=== PATIENT | female | born 1995 | race Caucasian/White ===

== ENCOUNTER 2017-04-15 21:21 | Emergency (ER) | payer OTHER ==
[2017-04-15 21:32] VITALS: BP 124/77
[2017-04-15] MEDS ORDERED: Sodium Chloride 0.9% 1,000 ML IV ONE (21:50)
[2017-04-15] MEDS ORDERED: Sodium Chloride 0.9% 10 ML Syringe FLUSH PRN (21:51)
[2017-04-15] MEDS ORDERED: Ketorolac 15 MG/ML SDV IVPUSH ONE (21:51)
[2017-04-15] MEDS ORDERED: LORazepam 2 MG/ML MDV IVPUSH ONE (21:52)
[2017-04-15] MEDS ORDERED: Magnesium Sulfate/Water 2 GM in Premix Bag 1 BAG IV ONE (22:29)
[2017-04-15] MEDS ORDERED: HYDROmorphone 0.5 MG/0.5 ML Syringe IVPUSH ONE (22:33)
--- NOTE | 2017-04-15 22:45 | EDM.PDOC ---
ED HPI GENERAL MEDICAL PROBLEM - General Chief Complaint: Gastrointestinal Problem Stated Complaint: THROWING UP SINCE NOON/STOMACH PAIN Time Seen by Provider: 04/15/17 21:35 Source of Information: Reports: Patient History Limitations: Reports: No Limitations - History of Present Illness INITIAL COMMENTS - FREE TEXT/NARRATIVE: 21-year-old female presents for evaluation of abdominal pain, nausea, vomiting and diarrhea. She felt nauseous last night went to bed. She states that she awoke fine. Reports around noon she started having episodes of nausea, vomiting and diarrhea. Reports 2 episodes of diarrhea today but then subsided. She reports that she has been having significant vomiting and will vomit anything up. She cannot keep anything down. She reports pain across the top of her abdomen. She states that the pain is greatest in the right and left upper quadrants and epigastric area. She states that the pain radiates from the epigastric area around her left upper quadrant and toward her back. She describes this pain as a severe, sharp, stabbing pain. She has not taking any medications for this prior to arrival in the ER. Patient denies any fevers. She reports that she has been feeling chilled and diaphoretic. Reports several weeks ago that she had black stools but states this is his not been normal for her. She did notice some pinkness to her stools today. She also reported some pink changed emesis. Patient also complains of numbness and tingling. Reports numbness and tingling to her face, hands and legs. She also reports muscle spasm straight hands. Patient denies any surgeries her abdomen. She denies any recent travel. She denies any ill contrast. She denies any questionable foods. Onset: Today Location: Reports: Abdomen Context: Denies: Sick Contact Abdomen Pain Score (Numeric/FACES): 9 - Related Data Allergies Allergy/AdvReac Type Severity Reaction Status Date / Time No Known Allergies Allergy Verified 04/15/17 21:39 Home Meds: Home Meds valACYclovir HCl [Valtrex] 500 mg PO ASDIRECTED 04/15/17 [History] Past Medical History - Past Health History Medical/Surgical History: Denies Medical/Surgical History ED ROS GENERAL - Review of Systems Review Of Systems: See Below Constitutional: Denies: Fever GI/Abdominal: Reports: Abdominal Pain, Diarrhea (x2 episodes today), Nausea, Vomiting, Other (reports black stool last week now reports sink tinged stool) Neurological: Reports: Numbness (face, hands and legs), Tingling (face, hands and legs) ED EXAM, GI/ABD - Physical Exam Exam: See Below Exam Limited By: No Limitations General Appearance: Alert, WD/WN, No Apparent Distress Throat/Mouth: Normal Inspection, Normal Voice, No Airway Compromise Respiratory/Chest: No Respiratory Distress, Lungs Clear Cardiovascular: Normal Peripheral Pulses, Regular Rate, Rhythm, No Murmur GI/Abdominal: Normal Bowel Sounds, Soft, Tenderness (RUQ, LUQ and epigastric area). No: Rebound, McBurney's Sign, Ag's Sign Neurological: Alert, Oriented, Normal Cognition Psychiatric: Normal Affect, Normal Mood Skin Exam: Warm, Dry, Normal Color Course - Vital Signs Last Recorded V/S: Last Vital Signs Temp 37.3 C 04/15/17 21:30 Pulse 99 04/15/17 21:30 Resp 20 04/15/17 21:30 BP 124/77 04/15/17 21:30 Pulse Ox 100 04/15/17 21:30 - Orders/Labs/Meds Labs: Laboratory Tests 04/15/17 04/15/17 04/15/17 Range/Units 21:45 21:45 21:45 WBC 8.56 (3.98-10.04) K/mm3 RBC 5.10 (3.98-5.22) M/mm3 Hgb 15.3 (11.2-15.7) gm/L Hct 44.5 (34.1-44.9) % MCV 87.3 (79.4-94.8) fl MCH 30.0 (25.6-32.2) pg MCHC 34.4 (32.2-35.5) g/dl RDW Std Deviation 39.0 (36.4-46.3) fL Plt Count 247 (182-369) K/mm3 MPV 10.3 (9.4-12.3) fl Neutrophils % (Manual) 77 H (40-60) % Band Neutrophils % 3 (0-10) % Lymphocytes % (Manual) 17 L (20-40) % Atypical Lymphs % 0 % Monocytes % (Manual) 3 (2-10) % Eosinophils % (Manual) 0 L (0.7-5.8) % Basophils % (Manual) 0 L (0.1-1.2) Platelet Estimate Adequate RBC Morph Comment Normal Sodium 140 (136-145) mEq/L Potassium 3.9 (3.5-5.1) mEq/L Chloride 103 (98-107) mEq/L Carbon Dioxide 22 (21-32) mEq/L Anion Gap 18.9 H (5-15) BUN 16 (7-18) mg/dL Creatinine 0.8 (0.55-1.02) mg/dL Est Cr Clr Drug Dosing 87.24 mL/min Estimated GFR (MDRD) > 60 (>60) mL/min BUN/Creatinine Ratio 20.0 H (14-18) Glucose 98 (74-106) mg/dL Calcium 9.6 (8.5-10.1) mg/dL Magnesium (1.8-2.4) mg/dl Total Bilirubin 1.7 H (0.2-1.0) mg/dL GGT 11 (5-55) U/L AST 21 (15-37) U/L ALT 21 (14-59) U/L Alkaline Phosphatase 90 (46-116) U/L C-Reactive Protein 1.0 (<1.0) mg/dL Total Protein 8.3 H (6.4-8.2) g/dl Albumin 4.3 (3.4-5.0) g/dl Globulin 4.0 gm/dL Albumin/Globulin Ratio 1.1 (1-2) Lipase 126 (73-393) U/L TSH 3rd Generation (0.358-3.74) uIU/mL HCG, Qual Negative (NEGATIVE) Urine Color (Yellow) Urine Appearance (Clear) Urine pH (5.0-8.0) Ur Specific [place] (1.005-1.030) Urine Protein (Negative) Urine Glucose (UA) (Negative) Urine Ketones (Negative) Urine Occult Blood (Negative) Urine Nitrite (Negative) Urine Bilirubin (Negative) Urine Urobilinogen (0.2-1.0) Ur Leukocyte Esterase (Negative) Urine RBC (0-5) /hpf Urine WBC (0-5) /hpf Ur Epithelial Cells Ur Squamous Epith Cells (0-5) /hpf Urine Bacteria (FEW) /hpf Urine Mucus (FEW) /hpf 04/15/17 04/15/17 04/15/17 Range/Units 21:45 21:45 22:35 WBC (3.98-10.04) K/mm3 RBC (3.98-5.22) M/mm3 Hgb (11.2-15.7) gm/L Hct (34.1-44.9) % MCV (79.4-94.8) fl MCH (25.6-32.2) pg MCHC (32.2-35.5) g/dl RDW Std Deviation (36.4-46.3) fL Plt Count (182-369) K/mm3 MPV (9.4-12.3) fl Neutrophils % (Manual) (40-60) % Band Neutrophils % (0-10) % Lymphocytes % (Manual) (20-40) % Atypical Lymphs % % Monocytes % (Manual) (2-10) % Eosinophils % (Manual) (0.7-5.8) % Basophils % (Manual) (0.1-1.2) Platelet Estimate RBC Morph Comment Sodium (136-145) mEq/L Potassium (3.5-5.1) mEq/L Chloride (98-107) mEq/L Carbon Dioxide (21-32) mEq/L Anion Gap (5-15) BUN (7-18) mg/dL Creatinine (0.55-1.02) mg/dL Est Cr Clr Drug Dosing mL/min Estimated GFR (MDRD) (>60) mL/min BUN/Creatinine Ratio (14-18) Glucose (74-106) mg/dL Calcium (8.5-10.1) mg/dL Magnesium 1.7 L (1.8-2.4) mg/dl Total Bilirubin (0.2-1.0) mg/dL GGT (5-55) U/L AST (15-37) U/L ALT (14-59) U/L Alkaline Phosphatase (46-116) U/L C-Reactive Protein (<1.0) mg/dL Total Protein (6.4-8.2) g/dl Albumin (3.4-5.0) g/dl Globulin gm/dL Albumin/Globulin Ratio (1-2) Lipase (73-393) U/L TSH 3rd Generation 0.434 (0.358-3.74) uIU/mL HCG, Qual (NEGATIVE) Urine Color Yellow (Yellow) Urine Appearance Clear (Clear) Urine pH 7.5 (5.0-8.0) Ur Specific [place] 1.020 (1.005-1.030) Urine Protein 1+ H (Negative) Urine Glucose (UA) Negative (Negative) Urine Ketones 3+ H (Negative) Urine Occult Blood Trace-lysed H (Negative) Urine Nitrite Negative (Negative) Urine Bilirubin Negative (Negative) Urine Urobilinogen 0.2 (0.2-1.0) Ur Leukocyte Esterase Negative (Negative) Urine RBC 0-5 (0-5) /hpf Urine WBC 0-5 (0-5) /hpf Ur Epithelial Cells Not Reportable Ur Squamous Epith Cells 5-10 H (0-5) /hpf Urine Bacteria Few (FEW) /hpf Urine Mucus Few (FEW) /hpf Meds: Medications Discontinued Medications Generic Name Dose Route Start Last Admin Trade Name Freq PRN Reason Stop Dose Admin Al Hydroxide/Mg Hydroxide 30 0 ml 04/15/17 22:54 04/15/17 23:23 ml/ Lidocaine HCl 15 ml PO 04/15/17 22:55 15 ml ONETIME ONE Administration Hydromorphone HCl 0.5 mg 04/15/17 22:33 04/15/17 22:47 Dilaudid IVPUSH 04/15/17 22:34 0.5 mg ONETIME ONE Administration Sodium Chloride 1,000 mls @ 999 mls/hr 04/15/17 21:50 04/15/17 22:00 Normal Saline IV 04/15/17 22:50 999 mls/hr ONETIME ONE Administration Magnesium Sulfate 2 gm/ Premix 50 mls @ 50 mls/hr 04/15/17 22:29 04/15/17 22: 47 IV 04/15/17 23:28 50 mls/hr ONETIME ONE Administration Ketorolac Tromethamine 15 mg 04/15/17 21:51 04/15/17 22:00 Toradol IVPUSH 04/15/17 21:52 15 mg ONETIME ONE Administration Lorazepam 0.5 mg 04/15/17 21:52 04/15/17 21:58 Ativan IVPUSH 04/15/17 21:53 0.5 mg ONETIME ONE Administration Ondansetron HCl 4 mg 04/15/17 23:13 04/15/17 23:18 Zofran IVPUSH 04/15/17 23:14 4 mg ONETIME ONE Administration Ondansetron HCl 4 mg 04/15/17 23:51 04/16/17 00:17 Zofran IVPUSH 04/15/17 23:52 4 mg ONETIME ONE Administration Sodium Chloride 10 ml 04/15/17 21:51 04/15/17 21:59 Saline Flush FLUSH 10 ml ASDIRECTED PRN Administration Keep Vein Open Sucralfate 1 gm 04/15/17 22:54 04/15/17 23:23 Carafate PO 04/15/17 22:55 1 gm ONETIME ONE Administration - Re-Assessments/Exams Free Text/Narrative Re-Assessment/Exam: 04/15/17 23:44 The patient's lab studies have returned. White blood cell count is 8.56 with 3 bands, hemoglobin 15.3 and platelets 247. HCG is negative. CRP is 1.0. Sodium is 140, potassium 3.9 chloride 103. Anion gap is 18.9. Glucose is 98. Total bilirubin is elevated at 1.7. AST is 21, ALT is 21 alkaline phosphatase is 90. GGT is within normal limits at 11. Magnesium is slightly low at 1.7. TSH is within normal limits at 0.434. I feel her pain and discomfort is most likely either related to gallbladder, gastritis or a stomach ulcer. I will have her start omeprazole to help with the gastritis and the ulcer. She may need to start Carafate if she continues to have discomfort. She did not get any relief tonight with the GI cocktail. Pain greatly improved with Dilaudid. Outpatient right upper quadrant abdominal ultrasound ordered to further evaluate the gallbladder. Numbness and tingling improved after IV mag and fluids. I will have her avoid fatty foods. I provided her prescription for pain medication if she needs. discharge instructions as document. Departure - Departure Time of Disposition: 23:45 Disposition: Home, Self-Care 01 Condition: fair Clinical Impression: Abdominal pain - Discharge Information Instructions: Abdominal Pain, Adult, [id number] Referrals: PCP,None [Primary Care Provider] - Emi Mei PA [Physician Military Aircraft Designer] - Forms: ED Department Discharge, Return to Work/School Form Additional Instructions: You were given medication in the ER that can affect your ability to drive and operate machinery. No driving or operating machinery within 12 hours of taking narcotic pain medication. Prescription for perocet given through [facility]. Percocet 1-2 tabs every 4-6 hours as needed for severe pain not relieved by Tylenol or Motrin. Zofran one tab sublingual every 6 hours as needed for nausea. Take omeprazole one 20 mg capsule daily. This medication is available over-the- counter. I have ordered an outpatient ultrasound for you. Please call [phone] on Sunday to schedule this. Recommend clear liquids and a bland diet. Avoid fatty foods. Follow up with family medicine this week for a recheck on ear pain and symptoms. I recommend Dr. Burgos or Emi Mei. Please call [phone] to schedule with one of them. Please return to the ER should your symptoms change or worsen.
[2017-04-15] MEDS ORDERED: Alum Hydrox/Mag Hydrox/Simeth 30 ML, Lidocaine 2% 15 ML PO ONE ×2 (22:54)
[2017-04-15] MEDS ORDERED: Sucralfate 1 GM Tab PO ONE (22:54)
[2017-04-15] MEDS ORDERED: Ondansetron 4 MG/2 ML SDV IVPUSH ONE ×2 (23:13→23:51)
== END 2017-04-16 00:30 | disposition home or self-care (01) ==
LOC: JD.ED 21:21
DX: R10.9 Unspecified abdominal pain (principal)
CPT/HCPCS: 36415; 80053; 81001; 82977; 83690; 83735; 84443; 84703; 85025; 86140; 96361; 96365; 96375; 96376; 99284; A9270; J1170; J1885; J2060; J2405; J7040; J7050; J3475

== ENCOUNTER 2017-04-25 09:16 | Day surgery (SDC) | payer OTHER ==
[~2017-04-25 09:16] MED LIST: Lactated Ringers 1,000 ML IV SCH; Lidocaine 1%/Sod Bicarbonate in NS 8.4% 1 ML Syringe PRN; Sodium Chloride 0.9% 10 ML Syringe FLUSH PRN
--- NOTE | 2017-04-25 09:55 | PCM.PREANE ---
Preanesthetic Assessment - Anesthesia/Transfusion/Family Hx Anesthesia History: Prior Anesthesia Without Reaction (anesthesia for ECT treatments, no previous surgeries) Family History of Anesthesia Reaction: No Transfusion History: No Prior Transfusion(s) - Review of Systems General: No Symptoms Pulmonary: No Symptoms Cardiovascular: No Symptoms Gastrointestinal: Nausea (pt states a little nauseated, she thinks due to not eating) Neurological: No Symptoms Other: Reports: None - Physical Assessment Pulse: 68 O2 Sat by Pulse Oximetry: 98 Respiratory Rate: 16 Blood Pressure: 120/63 Temperature: 98.8 C Height: 1.57 m Weight: 74.843 kg ASA Class: 1 Mental Status: Alert & Oriented x3 Airway Class: Mallampati = 1 Dentition: Reports: Normal Dentition Thyro-Mental Finger Breadths: 3 Mouth Opening Finger Breadths: 3 ROM/Head Extension: Full Lungs: Clear to auscultation, Normal respiratory effort Cardiovascular: Regular Rate, Regular Rhythm - Allergies Allergies/Adverse Reactions: Allergies Allergy/AdvReac Type Severity Reaction Status Date / Time No Known Allergies Allergy Verified 04/24/17 16:20 - Anesthesia Plan Pre-Op Medication Ordered: None - Acknowledgements Anesthesia Type Planned: MAC Pt an Appropriate Candidate for the Planned Anesthesia: Yes Alternatives and Risks of Anesthesia Discussed w Pt/Guardian: Yes Pt/Guardian Understands and Agrees with Anesthesia Plan: Yes PreAnesthesia Questionnaire - Past Health History Medical/Surgical History: Denies Medical/Surgical History HEENT History: Reports: None Cardiovascular History: Reports: None Respiratory History: Reports: None Gastrointestinal History: Reports: Other (See Below) (pt states is having RUQ pain) Other Gastrointestinal History: RUQ pain, vomiting Genitourinary History: Reports: None 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 (pt has nexplanon, irreg periods) LMP (Approximate): 3 Weeks Musculoskeletal History: Reports: None Neurological History: Reports: None Psychiatric History: Reports: None, Other (See Below) (pt states diagnosed with borderline personality disorder, no meds) Endocrine/Metabolic History: Reports: None Hematologic History: Reports: None Immunologic History: Reports: None Oncologic (Cancer) History: Reports: None Dermatologic History: Reports: Other (See Below) Other Dermatologic History: cold sores - Past Surgical History Head Surgeries/Procedures: Reports: None HEENT Surgical History: Reports: None Cardiovascular Surgical History: Reports: None Respiratory Surgical History: Reports: None GI Surgical History: Reports: None Female Surgical History: Reports: None Male Surgical History: Reports: None Endocrine Surgical History: Reports: None Neurological Surgical History: Reports: None Musculoskeletal Surgical History: Reports: None Oncologic Surgical History: Reports: None Dermatological Surgical History: Reports: None - SUBSTANCE USE Smoking Status *Q: Never Smoker Tobacco Use Within Last Twelve Months: No Second Hand Smoke Exposure: No Recreational Drug Use History: No - HOME MEDS Home Medications: Home Meds valACYclovir HCl [Valtrex] 500 mg PO ASDIRECTED PRN 04/15/17 [History] Etonogestrel [Nexplanon] 1 dose .ROUTE ASDIRECTED 04/24/17 [History] Ondansetron HCl [Zofran] 4 mg PO Q8H PRN 04/24/17 [History] oxyCODONE HCl/Acetaminophen [Endocet 5-325 Tablet] 1 tab PO Q4H PRN 04/24/17 [ History] - CURRENT (IN HOUSE) MEDS Current Meds: Current Medications Lactated Ringer's (Ringers, Lactated) 1,000 mls @ 125 mls/hr IV ASDIRECTED JENNI Stop: 04/25/17 23:00 Lidocaine/Sodium Bicarbonate (Buffered Lidocaine 1% In Ns 8.4%) 0.25 ml .XX ONETIME PRN PRN Reason: Prior to IV Start Stop: 04/25/17 18:00 Sodium Chloride (Saline Flush) 10 ml FLUSH ASDIRECTED PRN PRN Reason: Keep Vein Open Stop: 04/25/17 18:00
[2017-04-25] MEDS ORDERED: Propofol 200 MG/20 ML SDV ONE ×2 (10:20→11:10)
[2017-04-25] MEDS ORDERED: fentaNYL 100 MCG/2 ML SDV ONE (10:27)
[2017-04-25] MEDS ORDERED: Ondansetron 4 MG/2 ML SDV ONE (10:41)
--- NOTE | 2017-04-25 10:50 | PCM.OPNOTE ---
- General Post-Op/Procedure Note Date of Surgery/Procedure: 04/25/17 Operative Procedure(s): EGD with antral biopsies Findings: normal exam Pre Op Diagnosis: right upper quadrant abdominal pain Post-Op Diagnosis: same Anesthesia Technique: MAC, Moderate sedation Primary Surgeon: Espinoza Sanches Pathology: antral biopsies EBL in mLs: 0 Complications: None Condition: Good Free Text/Narrative:: After adequate IV sedation analgesia the patient was placed on her left side. Through a bite block lubricated upper endoscope was inserted into esophagus and advanced to the stomach. Air was given here. The scope was introduced into the duodenum. The second and first parts were normal. The antrum was unremarkable as well. In the retroflexed view there was no hiatal hernia and the fundus and cardiac regions were normal. The body of the stomach was normal as well. 2 random biopsies were taken within the antrum for histologic evaluation for Helicobacter pylori. The scope was withdrawn to the GE junction which was unremarkable. The body of the esophagus was endoscopically normal. Air was removed as a finished the procedure which she tolerated well. Pcas photographs were taken for the patient for the record.
--- NOTE | 2017-04-25 10:57 | PCM48HPAN ---
Post Anesthesia Note - EVALUATION WITHIN 48HRS OF ANESTHETIC Vital Signs in Normal Range: Yes Patient Participated in Evaluation: Yes Respiratory Function Stable: Yes Airway Patent: Yes Cardiovascular Function Stable: Yes Hydration Status Stable: Yes Pain Control Satisfactory: Yes Nausea and Vomiting Control Satisfactory: Yes Mental Status Recovered: Yes
[2017-04-25 11:05] VITALS: BP 107/50
== END 2017-04-25 11:20 | disposition home or self-care (01) ==
LOC: JD.SDS 09:16
PROVIDERS: ATTEND Surgery
DX: R10.11 Right upper quadrant pain (principal); Z97.5 Presence of (intrauterine) contraceptive device; Z79.899 Other long term (current) drug therapy; Z78.9 Other specified health status
CPT/HCPCS: 43239; 81025; 88305; J2405; J3010; J7120; J2704

== ENCOUNTER 2017-04-30 07:01 | Day surgery (SDC) | payer OTHER ==
[~2017-04-30 07:01] MED LIST changes: -Lactated Ringers 1,000 ML IV SCH; +Lidocaine 1%/Sod Bicarbonate in NS 8.4% 1 ML Syringe IV PRN; -Lidocaine 1%/Sod Bicarbonate in NS 8.4% 1 ML Syringe PRN
[2017-04-30] MEDS ORDERED: Lidocaine 1% with EPINEPHrine 1:100,000 20 ML MDV ONE (07:13)
[2017-04-30] MEDS ORDERED: Bupivacaine 0.5%/EPINEPHrine 1:200,000 50 ML MDV ONE (07:14)
[2017-04-30] MEDS ORDERED: Ondansetron 4 MG/2 ML SDV ONE (07:25)
[2017-04-30] MEDS ORDERED: Rocuronium 50 MG/5 ML Vial ONE (07:25)
[2017-04-30] MEDS ORDERED: Propofol 200 MG/20 ML SDV ONE ×2 (07:25→11:42)
[2017-04-30] MEDS ORDERED: fentaNYL 250 MCG/5 ML SDV ONE (07:26)
[2017-04-30] MEDS ORDERED: Midazolam 1 MG/ML 2 ML SDV ONE (07:26)
[2017-04-30] MEDS ORDERED: Lidocaine 1% 4 ML ONE (07:28)
[2017-04-30] MEDS ORDERED: Scopolamine 1.5 MG Transdermal Patch TOP ONE (07:29)
[2017-04-30] MEDS ORDERED: ceFAZolin 1 GM Vial ONE (07:32)
--- NOTE | 2017-04-30 07:35 | PCM.PREANE ---
Preanesthetic Assessment - Anesthesia/Transfusion/Family Hx Anesthesia History: Prior Anesthesia Without Reaction (anesthesia for ECT treatments, no previous surgeries) Family History of Anesthesia Reaction: No Transfusion History: No Prior Transfusion(s) - Review of Systems General: Malaise Pulmonary: No Symptoms Cardiovascular: No Symptoms Gastrointestinal: Abdominal pain Neurological: No Symptoms Other: Reports: Anxiety - Physical Assessment NPO Status Date: 04/29/17 NPO Status Time: 00:00 Pulse: 61 O2 Sat by Pulse Oximetry: 99 Respiratory Rate: 20 Blood Pressure: 98/53 Temperature: 37.6 C Height: 1.57 m Weight: 74.843 kg ASA Class: 1 Mental Status: Alert & Oriented x3 Dentition: Reports: Normal Dentition Thyro-Mental Finger Breadths: 3 Mouth Opening Finger Breadths: 3 ROM/Head Extension: Full Lungs: Clear to auscultation, Normal respiratory effort Cardiovascular: Regular Rate, Regular Rhythm, No Murmurs - Allergies Allergies/Adverse Reactions: Allergies Allergy/AdvReac Type Severity Reaction Status Date / Time No Known Allergies Allergy Verified 04/27/17 16:10 - Anesthesia Plan Pre-Op Medication Ordered: None - Acknowledgements Anesthesia Type Planned: General Anesthesia Pt an Appropriate Candidate for the Planned Anesthesia: Yes Alternatives and Risks of Anesthesia Discussed w Pt/Guardian: Yes Pt/Guardian Understands and Agrees with Anesthesia Plan: Yes PreAnesthesia Questionnaire - Past Health History Medical/Surgical History: Denies Medical/Surgical History HEENT History: Reports: None Cardiovascular History: Reports: None Respiratory History: Reports: None Gastrointestinal History: Reports: Other (See Below) Other Gastrointestinal History: RUQ pain, vomiting Genitourinary History: Reports: None 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 Musculoskeletal History: Reports: None Neurological History: Reports: None Psychiatric History: Reports: None, Other (See Below) Endocrine/Metabolic History: Reports: None Hematologic History: Reports: None Immunologic History: Reports: None Oncologic (Cancer) History: Reports: None Dermatologic History: Reports: Other (See Below) Other Dermatologic History: cold sores - Past Surgical History Head Surgeries/Procedures: Reports: None HEENT Surgical History: Reports: None Cardiovascular Surgical History: Reports: None Respiratory Surgical History: Reports: None GI Surgical History: Reports: None, EGD Female Surgical History: Reports: None Male Surgical History: Reports: None Endocrine Surgical History: Reports: None Neurological Surgical History: Reports: None Musculoskeletal Surgical History: Reports: None Oncologic Surgical History: Reports: None Dermatological Surgical History: Reports: None - SUBSTANCE USE Smoking Status *Q: Never Smoker Tobacco Use Within Last Twelve Months: No Second Hand Smoke Exposure: No Days Per Week of Alcohol Use: 0 Number of Drinks Per Day: 0 Total Drinks Per Week: 0 Recreational Drug Use History: No - HOME MEDS Home Medications: Home Meds valACYclovir HCl [Valtrex] 500 mg PO ASDIRECTED PRN 04/15/17 [History] Etonogestrel [Nexplanon] 1 dose .ROUTE ASDIRECTED 04/24/17 [History] Ondansetron HCl [Zofran] 4 mg PO Q8H PRN 04/24/17 [History] oxyCODONE HCl/Acetaminophen [Endocet 5-325 Tablet] 1 tab PO Q4H PRN 04/24/17 [ History] - CURRENT (IN HOUSE) MEDS Current Meds: Current Medications Lactated Ringer's (Ringers, Lactated) 1,000 mls @ 125 mls/hr IV ASDIRECTED JENNI Lidocaine/Sodium Bicarbonate (Buffered Lidocaine 1% In Ns 8.4%) 0.25 ml IV ONETIME PRN PRN Reason: Prior to IV Start Scopolamine (Transderm-Scop) 1.5 mg TOP ONETIME ONE Stop: 04/30/17 07:30 Sodium Chloride (Saline Flush) 10 ml FLUSH ASDIRECTED PRN PRN Reason: Keep Vein Open Discontinued Medications Bupivacaine HCl/Epinephrine Bitart (Marcaine 0.5%/Epinephrine 1:200,000) Confirm Administered Dose 50 ml .ROUTE .STK-MED ONE Stop: 04/30/17 07:15 Cefazolin Sodium (Ancef) Confirm Administered Dose 2 gm .ROUTE .STK-MED ONE Stop: 04/30/17 07:33 Fentanyl (Sublimaze) Confirm Administered Dose 250 mcg .ROUTE .STK-MED ONE Stop: 04/30/17 07:27 Lidocaine HCl (Xylocaine-Mpf 1%) Confirm Administered Dose 4 mls @ as directed .ROUTE .STK-MED ONE Stop: 04/30/17 07:29 Lidocaine/Epinephrine (Xylocaine 1% With Epinephrine 1:100,000) Confirm Administered Dose 20 ml .ROUTE .STK-MED ONE Stop: 04/30/17 07:14 Midazolam HCl (Versed 1 Mg/Ml) Confirm Administered Dose 2 mg .ROUTE .STK-MED ONE Stop: 04/30/17 07:27 Ondansetron HCl (Zofran) Confirm Administered Dose 4 mg .ROUTE .STK-MED ONE Stop: 04/30/17 07:26 Propofol (Diprivan 20 Ml) Confirm Administered Dose 200 mg .ROUTE .STK-MED ONE Stop: 04/30/17 07:26 Rocuronium Fleming (Zemuron) Confirm Administered Dose 50 mg .ROUTE .STK-MED ONE Stop: 04/30/17 07:26
[2017-04-30] MEDS: Lactated Ringers 1,000 ML IV SCH ×2 (07:40→10:43)
[2017-04-30] MEDS ORDERED: Dexamethasone 4 MG/ML 5 ML MDV ONE (08:40)
[2017-04-30] MEDS ORDERED: diphenhydrAMINE 50 MG/ML SDV ONE (08:40)
[2017-04-30] MEDS ORDERED: HYDROmorphone 1 MG/ML Syringe ONE (08:46)
[2017-04-30] MEDS ORDERED: Lactated Ringers 1,000 ML ONE (08:53)
[2017-04-30] MEDS ORDERED: Neostigmine Methylsulfate 10 MG/10 ML MDV ONE (09:19)
[2017-04-30] MEDS ORDERED: Ketorolac 30 MG/ML SDV IVPUSH PRN (09:42)
--- NOTE | 2017-04-30 09:43 | PCM.POSTAN ---
POST ANESTHESIA ASSESSMENT - MENTAL STATUS Mental Status: somnolent - VITAL SIGNS Pulse Rate: 101 SaO2: 100 Resp Rate: 14 Blood Pressure: 125/50 Temperature: 36.9 C - RESPIRATORY Respiratory Status: respiratory rate WNL, airway patent, O2 saturation stable, supplemental oxygen - CARDIOVASCULAR CV Status: pulse rate WNL, blood pressure stable - GASTROINTESTINAL GI Status: no symptoms - PAIN Pain Score: 0 - POST OP HYDRATION Hydration Status: adequate & stable - OBSERVATIONS Free Text/Narrative:: no anesthesia complications noted
--- NOTE | 2017-04-30 09:44 | PCM.OPNOTE ---
- General Post-Op/Procedure Note Date of Surgery/Procedure: 04/30/17 Operative Procedure(s): Laparoscopic cholecystectomy Findings: There was a small slightly sclerotic cystic duct with filmy adhesions. There were no gallstones. The bile was dark green suggesting cholestasis. When the cystic duct was transected there was extruded mucus. Pre Op Diagnosis: Biliary colic Post-Op Diagnosis: Same Anesthesia Technique: General ET tube, Local Primary Surgeon: Espinoza Sanches Pathology: Gallbladder and contents EBL in mLs: 2 Complications: None Condition: Good Free Text/Narrative:: After adequate general endotracheal tube anesthesia was obtained the patient's abdomen was prepped and draped for laparoscopic cholecystectomy in the usual fashion. A supraumbilical incision was made after local analgesia with 15 blade down to the fascia. The fascia was entered in the midline followed by cannulation with a 12 mm camera port. CO2 pneumoperitoneum was obtained. After local analgesia was given 3 -- 5 mm working ports are placed along the right subcostal margin. The gallbladder was distended and I grasped the fundus of the gallbladder and retracted it and the liver in a cephalad direction. I then grasped Ash's pouch and dissected out the cystic duct and cystic artery. These structures were clipped in continuity with 5 mm clips and divided with EndoShears. I took the gallbladder down in a retrograde fashion with the hook cautery and placed it in a specimen bag. The specimen was removed through the umbilicus. The gallbladder bed was hemostatic and bile static. There was no obvious bowel injury. She was decannulated under direct vision with no bleeding from the port sites. The supraumbilical site was closed with an interrupted [id number] suture vicry. The 5 mm working ports were closed with subcuticular Vicryl. Steri-Strips and gauze were used for the dressing. There were no complications. Photographs taken for the patient for the record.
[2017-04-30] MEDS: fentaNYL 100 MCG/2 ML SDV IVPUSH PRN ×4 (09:55→10:34)
[2017-04-30] MEDS ORDERED: LORazepam 2 MG/ML MDV IVPUSH ONE (10:13)
[2017-04-30] MEDS ORDERED: HYDROmorphone 0.5 MG/0.5 ML Syringe IVPUSH PRN (10:13)
--- NOTE | 2017-04-30 10:45 | PCM48HPAN ---
Post Anesthesia Note - EVALUATION WITHIN 48HRS OF ANESTHETIC Vital Signs in Normal Range: Yes Patient Participated in Evaluation: Yes Respiratory Function Stable: Yes Airway Patent: Yes Cardiovascular Function Stable: Yes Hydration Status Stable: Yes Pain Control Satisfactory: Yes (pt is very anxious encouraged to relax) Nausea and Vomiting Control Satisfactory: Yes Mental Status Recovered: Yes - COMMENTS/OBSERVATIONS Free Text/Narrative:: patient is anxious ativan and valium given patient encouraged to relax and rest
[2017-04-30] MEDS ORDERED: Ketamine 500 mg/10 ML MDV ONE (11:28)
--- NOTE | 2017-04-30 12:12 | PCM.SN ---
- Free Text/Narrative Note: 11:20 patient having panic attack 11:25 25mg Ketamine given 11:35 50mg propofol given patient resting 11:48 patient having another panic attack 30mg propofol given patient resting mom at bedside 12:10 patient talking with mom at bedside VSS 102/68 98 16
[2017-04-30] MEDS ORDERED: Cyclobenzaprine 10 MG Tab PO ONE (12:51)
[2017-04-30] MEDS ORDERED: Acetaminophen/Codeine 300-30 MG Tab PO ONE (12:51)
[2017-04-30 15:01] VITALS: BP 104/46
== END 2017-04-30 14:30 | disposition home or self-care (01) ==
LOC: JD.SDS 07:01
PROVIDERS: ATTEND Surgery
PROC: 0FT44ZZ Resection of Gallbladder, Percutaneous Endoscopic Approach (ICD-10-PCS; principal; 2017-04-30)
DX: K81.1 Chronic cholecystitis (principal)
CPT/HCPCS: 47562; 81025; 88304; A9270; J0690; J1100; J1170; J1200; J1885; J2060; J2250; J2405; J2710; J3010; J3360; J7120; 00790; J2704

== ENCOUNTER 2018-02-20 09:04 | Day surgery (SDC) | payer OTHER ==
[~2018-02-20 09:04] MED LIST changes: +Lactated Ringers 1,000 ML IV SCH; +Lidocaine 1%/Sod Bicarbonate in NS 8.4% 1 ML Syringe IDERM PRN; -Lidocaine 1%/Sod Bicarbonate in NS 8.4% 1 ML Syringe IV PRN
[2018-02-20] MEDS ORDERED: fentaNYL 100 MCG/2 ML SDV ONE (09:18)
[2018-02-20] MEDS ORDERED: Midazolam 1 MG/ML 2 ML SDV ONE (09:18)
[2018-02-20] MEDS ORDERED: Lidocaine 1% 0 ML ONE (09:18)
[2018-02-20] MEDS ORDERED: Propofol 200 MG/20 ML SDV ONE ×2 (09:18→10:25)
--- NOTE | 2018-02-20 09:46 | PCM.PREANE ---
Preanesthetic Assessment - Anesthesia/Transfusion/Family Hx Anesthesia History: Prior Anesthesia Without Reaction (anesthesia for ECT treatments, no previous surgeries) Type of Anesthesia Reaction: Other (see below) (hard time coming out of gallbladder surgery) Family History of Anesthesia Reaction: No Transfusion History: No Prior Transfusion(s) - Review of Systems General: No Symptoms Pulmonary: No Symptoms Cardiovascular: No Symptoms Gastrointestinal: Diarrhea (for 1 year), Nausea (past few days) Neurological: No Symptoms Other: Reports: Depression - Physical Assessment NPO Status Date: 02/19/18 NPO Status Time: 21:30 Pulse: 95 O2 Sat by Pulse Oximetry: 98 Respiratory Rate: 16 Blood Pressure: 104/66 Temperature: 99.2 F Height: 5 ft 2.25 in Weight: 72.121 kg ASA Class: 1 Mental Status: Alert & Oriented x3 Airway Class: Mallampati = 1 Dentition: Reports: Normal Dentition Thyro-Mental Finger Breadths: 3 Mouth Opening Finger Breadths: 3 ROM/Head Extension: Full Lungs: Clear to Auscultation, Normal Respiratory Effort Cardiovascular: Regular Rate, Regular Rhythm - Lab Values: Laboratory Last Values Urine HCG, Qual Negative (NEGATIVE) 02/20/18 09:14 - Allergies Allergies/Adverse Reactions: Allergies Allergy/AdvReac Type Severity Reaction Status Date / Time No Known Allergies Allergy Verified 02/19/18 14:52 - Blood Blood Available: No - Acknowledgements Anesthesia Type Planned: MAC Pt an Appropriate Candidate for the Planned Anesthesia: Yes Alternatives and Risks of Anesthesia Discussed w Pt/Guardian: Yes Pt/Guardian Understands and Agrees with Anesthesia Plan: Yes PreAnesthesia Questionnaire - Past Health History Medical/Surgical History: Denies Medical/Surgical History HEENT History: Reports: None Other HEENT History: sore throat, tonsillitis Cardiovascular History: Reports: None Respiratory History: Reports: None Gastrointestinal History: Reports: Other (See Below) Other Gastrointestinal History: RUQ pain, vomiting, abdominal pain, diarrhea post cholecystectomy Genitourinary History: Reports: None VALIDATION TECHNICIAN History: Reports: None Musculoskeletal History: Reports: None Neurological History: Reports: None, Other (See Below) Other Neuro History: motion sickness Psychiatric History: Reports: None, Depression, Other (See Below) Endocrine/Metabolic History: Reports: None Hematologic History: Reports: None Immunologic History: Reports: None Oncologic (Cancer) History: Reports: None Dermatologic History: Reports: Other (See Below) Other Dermatologic History: cold sores, acne - Past Surgical History Head Surgeries/Procedures: Reports: None HEENT Surgical History: Reports: None Cardiovascular Surgical History: Reports: None Respiratory Surgical History: Reports: None GI Surgical History: Reports: Cholecystectomy, EGD Female Surgical History: Reports: None Male Surgical History: Reports: None Endocrine Surgical History: Reports: None Neurological Surgical History: Reports: None Musculoskeletal Surgical History: Reports: None Oncologic Surgical History: Reports: None Dermatological Surgical History: Reports: None - SUBSTANCE USE Smoking Status *Q: Former Smoker (quit 2 years ago) Tobacco Use Within Last Twelve Months: No Second Hand Smoke Exposure: No Days Per Week of Alcohol Use: 1 Number of Drinks Per Day: 2 Total Drinks Per Week: 2 Recreational Drug Use History: No - HOME MEDS Home Medications: Home Meds Acyclovir 400 mg PO BID PRN 02/19/18 [History] Etonogestrel [Nexplanon] 1 dose SQ ASDIRECTED 02/19/18 [History] Lysine 500 mg PO DAILY 02/19/18 [History] Minocycline [Minocin] 100 mg PO DAILY 02/19/18 [History] Topiramate 50 mg PO DAILY 02/19/18 [History] - CURRENT (IN HOUSE) MEDS Current Meds: Current Medications Lactated Ringer's (Ringers, Lactated) 1,000 mls @ 125 mls/hr IV ASDIRECTED JENNI Stop: 02/20/18 23:00 Lidocaine/Sodium Bicarbonate (Buffered Lidocaine 1% In Ns 8.4%) 0.25 ml IDERM ONETIME PRN PRN Reason: Prior to IV Start Stop: 02/20/18 18:00 Sodium Chloride (Saline Flush) 10 ml FLUSH ASDIRECTED PRN PRN Reason: Keep Vein Open Stop: 02/20/18 18:00 Discontinued Medications Fentanyl (Sublimaze) Confirm Administered Dose 100 mcg .ROUTE .STK-MED ONE Stop: 02/20/18 09:19 Midazolam HCl (Versed 1 Mg/Ml) Confirm Administered Dose 2 mg .ROUTE .STK-MED ONE Stop: 02/20/18 09:19 Propofol (Diprivan 20 Ml) Confirm Administered Dose 200 mg .ROUTE .STK-MED ONE Stop: 02/20/18 09:19
[2018-02-20] MEDS ORDERED: Ondansetron 4 MG/2 ML SDV ONE (09:50)
--- NOTE | 2018-02-20 10:51 | PCM.OPNOTE ---
- General Post-Op/Procedure Note Date of Surgery/Procedure: 02/20/18 Operative Procedure(s): Colonoscopy with ileal right colon transverse descending and rectal biopsies Findings: External hemorrhoids but a normal endoscopic examination Pre Op Diagnosis: Intermittent bloody diarrhea Post-Op Diagnosis: Same Anesthesia Technique: MAC, Moderate Sedation Primary Surgeon: Espinoza Sanches Pathology: Ileal biopsy followed by random right colon transverse descending and rectal biopsies. EBL in mLs: 0 Complications: None Condition: Good Free Text/Narrative:: After adequate IV sedation and analgesia was obtained with monitoring the patient was placed on her left side. Perianal inspection revealed minor uncomplicated external hemorrhoids. Digital rectal examination was otherwise unremarkable. A lubricated colonoscope was inserted into the rectum and advanced to the cecum with some abdominal pressure. The bowel preparation was excellent. I was able to intubate the terminal ileum which was grossly normal. But because of her history I took 2 random biopsies for histologic evaluation. I withdrew the scope to the cecum and right colonic area. These areas were unremarkable for inflammatory changes and like before I took biopsies randomly in the ascending colon. Similarly the there were no findings within the transverse and descending colons but these areas were randomly biopsied as well. The sigmoid was endoscopically normal. The rectum in both views was unremarkable. I took 2 random biopsies for evaluation. Public Transportation Inspector photographs were taken for the patient and for the medical record.
[2018-02-20 10:52] VITALS: BP 108/49
--- NOTE | 2018-02-20 10:52 | PCM48HPAN ---
Post Anesthesia Note - EVALUATION WITHIN 48HRS OF ANESTHETIC Vital Signs in Normal Range: Yes Patient Participated in Evaluation: Yes Respiratory Function Stable: Yes Airway Patent: Yes Cardiovascular Function Stable: Yes Hydration Status Stable: Yes Nausea and Vomiting Control Satisfactory: Yes Mental Status Recovered: Yes Pulse Rate: 88 SaO2: 97 Resp Rate: 16 Temperature: 98.2 F Blood Pressure: 108/49
== END 2018-02-20 11:23 | disposition home or self-care (01) ==
LOC: JD.SDS 09:04
PROVIDERS: ATTEND Surgery
DX: K92.1 Melena (principal); K64.4 Residual hemorrhoidal skin tags; K63.89 Other specified diseases of intestine; G47.00 Insomnia, unspecified; F32.9 Major depressive disorder, single episode, unspecified; Z90.49 Acquired absence of other specified parts of digestive tract; Z79.899 Other long term (current) drug therapy
CPT/HCPCS: 45380; 81025; J2250; J2405; J3010; J7120; 00811; 88305; J2704